=== PATIENT | male | born 1985 | race Two or more races ===

== ENCOUNTER 2019-09-23 02:17 | Emergency (ER) | payer BC, OTHER ==
[2019-09-23] MEDS ORDERED: IPRATROPIUM/ALBUTEROL 0.5-2.5 MG/3 ML AMPUL NEB ONE (02:43)
[2019-09-23] MEDS ORDERED: PREDNISONE 20 MG TABLET PO ONE (02:43)
[2019-09-23] MEDS ORDERED: FAMOTIDINE 20 MG TABLET PO ONE (02:43)
--- NOTE | 2019-09-23 02:47 | ER Document Report ---
ED Respiratory Problem - General Chief Complaint: Cough Stated Complaint: COUGH Time Seen by Provider: 09/23/19 02:31 Primary Care Provider: GISELLA KOHLI [NO LOCAL MD] - Follow up as needed Notes: Patient is a 33-year-old male that comes to the emergency department for chief complaint of cough and wheezing with both clear and green mucus production. Patient states that he has been coughing for over a week, this is worsening, he states that he vomited up some mucus earlier today as well. He denies fever, chills, abdominal pain, chest pain, sore throat, sinus congestion. He denies recent travel or exposures. He does smoke. He denies history of asthma or any diagnosed medical history. He denies any recreational drugs. - Related Data Allergies/Adverse Reactions: No Known Allergies Allergy (Unverified 09/23/19 02:47) Past Medical History - General Information source: Patient - Social History Smoking Status: Current Every Day Smoker Frequency of alcohol use: None Drug Abuse: None Lives with: Alone Family History: Reviewed & Not Pertinent Patient has suicidal ideation: No Patient has homicidal ideation: No - Medical History Medical History: Negative Surgical Hx: Negative - Immunizations Immunizations up to date: Yes Hx Diphtheria, Pertussis, Tetanus Vaccination: Yes Review of Systems - Review of Systems Constitutional: No symptoms reported EENT: See HPI Cardiovascular: No symptoms reported Respiratory: See HPI Gastrointestinal: No symptoms reported Genitourinary: No symptoms reported Male Genitourinary: No symptoms reported Musculoskeletal: No symptoms reported Skin: No symptoms reported Hematologic/Lymphatic: No symptoms reported Neurological/Psychological: No symptoms reported Physical Exam - Vital signs Vitals: Temp Pulse Resp BP Pulse Ox 99.0 F 78 20 130/73 H 96 09/23/19 02:44 09/23/19 02:44 09/23/19 02:44 09/23/19 02:44 09/23/19 02:44 - Notes Notes: GENERAL: Alert, interacts well. No acute distress. HEAD: Normocephalic, atraumatic. EYES: Pupils equal, round, and reactive to light. Extraocular movements intact. ENT: Oral mucosa moist, tongue midline. Oropharynx unremarkable. Airway patent. Mild nasal congestion, sinuses non-tender, ear canals unremarkable, there appears to be developing left ear effusion. NECK: Full range of motion. Supple. Trachea midline. No lymphadenopathy. LUNGS: Expiratory wheezes heard throughout but I still hear good air movement otherwise. No tachypnea, labored breathing. No noted coughing. No respiratory distress. HEART: Regular rate and rhythm. No murmur ABDOMEN: Soft, non-tender. Non-distended. EXTREMITIES: Moves all 4 extremities spontaneously. No edema, normal radial and dorsalis pedis pulses bilaterally. No cyanosis. BACK: no cervical, thoracic, lumbar midline tenderness. No saddle anesthesia, normal distal neurovascular exam. Moves all extremities in full range of motion. NEUROLOGICAL: Alert and oriented x3. Normal speech. Cranial nerves II through XII grossly intact. Strength 5/5 in all extremities. PSYCH: Normal affect, normal mood. SKIN: Warm, dry, normal turgor. No rashes or lesions noted. Course - Re-evaluation Re-evalutation: On my reevaluation patient reports that he coughed up a lot of mucus, I do not auscultate any wheezing, his vital signs are unremarkable. Chest x-ray is negative. Patient does not have any sick symptoms with his wheezing and cough, patient states he believes this is seasonal allergies based on how this came on. Low suspicion of coronavirus based on lack of fever, lack of body aches, and lack of symptoms other than wheezing and cough with developing symptoms as soon as the pollen came with history of the same according to patient. I did offer testing but patient declined. I feel this is appropriate. Patient will be treated for wheezing/bronchitis, he will be provided with inhaler, spacer, steroids. Discussed smoking cessation. Discussed follow-up and return precautions. Patient states appreciation and agreement. Asymptomatic and stable at time of discharge. - Vital Signs Vital signs: Temp Pulse Resp BP Pulse Ox 99.0 F 78 20 130/73 H 96 09/23/19 02:44 09/23/19 02:44 09/23/19 02:44 09/23/19 02:44 09/23/19 02:44 Discharge - Discharge Clinical Impression: Productive cough, Wheezing Condition: Stable Disposition: HOME, SELF-CARE Additional Instructions: Your chest x-ray is normal. Your evaluation is consistent with bronchitis. Use albuterol inhaler with the spacer every 4-6 hours (1 to 2 puffs) as needed, take prednisone as prescribed. While taking the prednisone avoid carbohydrates as this will cause you to increase your blood sugar and gain weight if you do not. Drink plenty of fluids and rest. I also recommend [id number] antihistamine such as cetirizine daily and Flonase nasal spray. Symptoms should gradually resolve. Follow-up with primary care. Stop smoking. Return if you worsen including spiking fever, difficulty breathing, or any other concerning or worsening symptoms. Prescriptions: Prednisone [Deltasone 20 mg Tablet] 3 tab PO DAILY 5 Days #15 tablet Albuterol Sulfate [Proair HFA Inhalation Aerosol 8.5 gm MDI] 2 puff IH Q4H PRN #1 mdi PRN Reason: Forms: Smoking Cessation Education, Return to Work Referrals: LOCALMD,NO [NO LOCAL MD] - Follow up as needed
--- NOTE | 2019-09-23 03:38 | RADIOLOGY REPORT (SQ) ---
EXAM DESCRIPTION: XR CHEST 1 VIEW COMPLETED DATE/TME: 09/23/2019 02:44 CLINICAL HISTORY: 33 years, Male, productive cough x 1 week COMPARISON: None. NUMBER OF VIEWS: One TECHNIQUE: AP view of the chest LIMITATIONS: None. FINDINGS: The lungs are clear. The heart is normal in size. There is no pneumothorax or pleural effusion. The bones are unremarkable. IMPRESSION: No acute cardiopulmonary abnormality. copyright 2010 [employer]- All Rights Reserved
[2019-09-23] MEDS ORDERED: ALBUTEROL SULFATE HFA (90 MCG/PUFF) 8 GM MDI (1 MDI/ER DISP) IH ONE (03:54)
[2019-09-23] MEDS ORDERED: ALBUTEROL SULFATE HFA (90 MCG/PUFF) 8 GM MDI IH ONE (04:13)
[2019-09-23 04:35] VITALS: BP 130/74
== END 2019-09-23 04:34 | disposition home or self-care (01) ==
LOC: ER 02:17
DX: J40 Bronchitis, not specified as acute or chronic (principal); R05 Cough; R06.2 Wheezing; R09.81 Nasal congestion; R11.10 Vomiting, unspecified; F17.200 Nicotine dependence, unspecified, uncomplicated
CPT/HCPCS: 99283; 71045; J7512; J3490